=== PATIENT | female | born 1980 | race Caucasian/White ===

== ENCOUNTER 2020-04-13 11:32 | Outpatient (CLI) | payer OTHER | END 2020-04-13 11:36 | disposition home or self-care (01) | LOC: CERTIFICAD 11:32 | PROVIDERS: ATTEND Orthopaedic Surgery | DX: Z00.00 Encounter for general adult medical examination without abnormal findings (principal) ==

== ENCOUNTER 2020-05-04 12:00 | Outpatient (CLI) | payer OTHER | END 2020-05-04 16:11 | disposition home or self-care (01) | LOC: PPH VACUNA 12:00 | DX: Z23 Encounter for immunization (principal) ==

== ENCOUNTER 2020-06-26 08:17 | Outpatient (CLI) | payer OTHER | END 2020-06-26 16:05 | disposition home or self-care (01) | LOC: LAB 08:17 | DX: Z20.828 Contact with and (suspected) exposure to other viral communicable diseases (principal); J22 Unspecified acute lower respiratory infection ==

== ENCOUNTER → 2020-07-24 16:14 | Outpatient (CLI) | payer OTHER | END | disposition home or self-care (01) | LOC: LAB 16:14 | PROVIDERS: ATTEND Orthopaedic Surgery | DX: Z20.828 Contact with and (suspected) exposure to other viral communicable diseases (principal); J22 Unspecified acute lower respiratory infection ==

== ENCOUNTER 2021-05-15 08:00 | Outpatient (CLI) | payer OTHER | END 2021-05-15 08:30 | disposition home or self-care (01) | LOC: PPH VACUNA 08:00 | PROVIDERS: ATTEND Emergency Medicine Pediatric Emergency Medicine | DX: Z23 Encounter for immunization (principal) ==

== ENCOUNTER 2021-10-23 05:57 | Day surgery (SDC) | payer OTHER | END 2021-10-23 11:40 | disposition home or self-care (01) | LOC: AMB-ENDOS 05:57 | PROVIDERS: ATTEND Colon & Rectal Surgery | DX: D12.7 Benign neoplasm of rectosigmoid junction (principal); D12.3 Benign neoplasm of transverse colon; K64.4 Residual hemorrhoidal skin tags; I10 Essential (primary) hypertension; Z88.0 Allergy status to penicillin ==

== ENCOUNTER 2023-07-30 13:46 | Outpatient (CLI) | payer OTHER | END 2023-07-30 14:29 | disposition home or self-care (01) | LOC: RAD 13:46 | DX: M54.2 Cervicalgia (principal); S43.122A Dislocation of left acromioclavicular joint, 100%-200% displacement, initial encounter ==